=== PATIENT | male | born 1985 | race Caucasian/White ===

== ENCOUNTER 2022-09-25 09:44 | Emergency (ER) | payer OTHER, SELFPAY ==
[2022-09-25 10:06] VITALS: BP 138/72; PULSE 66; RESP 20; TEMP 36.2; O2SAT 99
--- NOTE | 2022-09-25 10:07 | ED.URI ---
HPI - URI/Sore Throat General Chief Complaint: Upper Respiratory Infection Stated Complaint: SINUS/SORE THROAT Time Seen by Provider: 09/25/22 10:07 Source: patient Mode of arrival: ambulatory Limitations: no limitations History of Present Illness HPI Narrative: 37-year-old male presents with complaint of sinus congestion, sinus pressure, postnasal drainage, cough for 1 week. Now having left ear pain. History of recurrent ear infections. No hearing change. Afebrile. Taking Zyrtec with no relief. Patient took home covid test x2, both were negative. All systems reviewed and negative except as above. Related Data Allergies Allergy/AdvReac Type Severity Reaction Status Date / Time ciprofloxacin Allergy Unknown ruptured Verified 07/18/21 08:14 tendon Review of Systems Review of Systems: CONSTITUTIONAL: Denies fever, chills, or sweats. EYES: Denies visual changes, redness, or discharge. ENT: Reports rhinorrhea, congestion, sore throat, postnasal drainage, sinus pressure and left otalgia. CARDIOVASCULAR: Denies chest pain, palpitations, or edema. RESPIRATORY: Reports cough. Denies dyspnea. GASTROINTESTINAL: Denies abdominal pain, nausea, vomiting, or diarrhea. GENITOURINARY: Denies dysuria or hematuria. SKIN: Denies rash or itching. MUSCULOSKELETAL: Denies back pain, joint pain, or myalgia. NEUROLOGIC: Denies headache, numbness, or weakness. PSYCHIATRIC: Denies anxiety or depression. All other systems reviewed are negative, except as documented in HPI. [facility] Past Medical History Medical History HTN (hypertension) Hyperlipidemia Vertigo Surgical History Surgical History History of tympanoplasty History of vasectomy Hx of tonsillectomy Family History Family History Father Family history of glaucoma Hypertension Family history of elevated blood lipids Malignant neoplasm of prostate Mother Hypertension Family history of elevated blood lipids Family history of hyperthyroidism Social History Social History Smoking status: Never smoker Alcohol intake: never Comments At time of signature, agree with nursing past medical, surgical, social and family history. There is no relevant family history pertinent to the presenting complaint. Exam Narrative: GENERAL: This is a well-nourished, well-developed patient, in no apparent distress. HEAD: normocephalic, atraumatic. EYES: PERRL. Sclera clear/white. Vision is grossly intact. EARS: External ears normal, auditory canals clear and without drainage, fluid to left TM with erythema, retracted. Fluid to right TM. NOSE: External nose normal with clear nasal drainage, moderate congestion. THROAT: Mucous membranes moist, clear postnasal drainage. NECK: Neck supple, non-tender without lymphadenopathy, masses or thyromegaly. CARDIOVASCULAR: Regular rate and rhythm without murmurs, gallops, or rubs. RESPIRATORY: Clear to auscultation. Breath sounds equal bilaterally. No wheezes, rales, or rhonchi. SKIN: warm, Dry, intact with no suspicious lesions or rash, good texture and turgor. NEURO: awake, alert, and oriented to person, place and time. There were no obvious focal neurologic abnormalities. EXTREMITIES: No joint tenderness, effusion, or edema noted. Course Course Level of Care: Express Care Visit Vital Signs Vital signs: Vital Signs Temperature 36.2 C L 09/25/22 10:06 Pulse Rate 66 09/25/22 10:06 Respiratory Rate 20 09/25/22 10:06 Blood Pressure 138/72 09/25/22 10:06 Pulse Oximetry 99 09/25/22 10:06 Oxygen Delivery Room Air 09/25/22 10:06 Temperature 36.2 C L 09/25/22 10:06 Pulse Rate 66 09/25/22 10:06 Respiratory Rate 20 09/25/22 10:06 Blood Pressure 138/72 09/25/22 10:06 Pulse Oximetry 99
== END 2022-09-25 10:16 | disposition home or self-care (01) ==
PROVIDERS: Emergency Provider Nurse Practitioner Family; PCP Internal Medicine
DX: H65.02 Acute serous otitis media, left ear (principal); J01.90 Acute sinusitis, unspecified; I10 Essential (primary) hypertension; E78.5 Hyperlipidemia, unspecified
CPT/HCPCS: 99213; G0463